=== PATIENT | male | born 1960 | race Two or more races ===

== ENCOUNTER 2024-03-10 07:35 | Day surgery (SDC) | payer BC, OTHER ==
[2024-03-10] VITALS (15 sets, daily range): BP systolic 100–148; BP diastolic 31–106; PULSE 60–79; RESP 10–18; TEMP 98; O2SAT 96–99
[~2024-03-10] VITALS: Ht 177.8 cm; Wt 77.0 kg
[2024-03-10] MEDS ORDERED: nitroGLYCERIN 0.4mg SUBLingual tab SL PRN ×2 (08:05→11:15)
[2024-03-10] MEDS ORDERED: FLO0.4C PO (08:17)
[2024-03-10] MEDS ORDERED: ASPI-1265 PO (08:17)
[2024-03-10] MEDS ORDERED: EZET10TA48 PO (08:17)
[2024-03-10] MEDS ORDERED: METO50TA16 PO (08:17)
[2024-03-10] MEDS ORDERED: ATOR-2 PO (08:17)
[2024-03-10 08:33] LABS: BASOPHILS % (AUTO) 0.9 % (0-1); EOSINOPHILS # (AUTO) 0.1 X10'3 (0-0.9); EOSINOPHILS % (AUTO) 1.8 % (0-6); HEMATOCRIT 45.6 % (42.0-52.0); HEMOGLOBIN 15.3 g/dl (14.0-17.9); LYMPHOCYTES # (AUTO) 1.1 X10'3 (1.1-4.8); LYMPHOCYTES % (AUTO) 27.6 % (21-51); MEAN CORPUSCULAR HEMOGLOBIN 30.2 PG (27.0-31.0); MEAN CORPUSCULAR HGB CONC 33.6 g/dL (33.0-36.5); MONOCYTES # (AUTO) 0.4 X10'3 (0-0.9); MONOCYTES % (AUTO) 9.9 % (2-12); NEUTROPHILS # (AUTO) 2.4 X10'3 (1.8-7.7); NEUTROPHILS % (AUTO) 59.8 % (42-75); PLATELET COUNT 141 X10'3 (140-440); RED BLOOD COUNT 5.07 X10'6 (4.70-6.10); RED CELL DISTRIBUTION WIDTH 13.6 % (11.5-14.5); WHITE BLOOD COUNT 4.1 X10'3 (4.5-11.0)
[2024-03-10 08:40] LABS: ALBUMIN 4.1 G/DL (3.4-5.0); ANION GAP 10 (8-16); BLOOD UREA NITROGEN 23 MG/DL (7-18); BUN/CREATININE RATIO 27.7 (10.0-20.0); CALCIUM 8.8 MG/DL (8.5-10.1); CHLORIDE 104 MMOL/L (99-107); CREATININE 0.83 MG/DL (0.60-1.10); GLUCOSE 90 MG/DL (70-104); POTASSIUM 3.6 MMOL/L (3.5-5.1); SODIUM 142 MMOL/L (135-145); TOTAL CARBON DIOXIDE 28.2 MMOL/L (24-32); eCRCL 94 ML/MIN; eGFR > 90 ML/MIN
[2024-03-10 08:44] LABS: APTT 26 SECONDS (22-32); PROTHROMBIN TIME 10.8 SECONDS (9.0-12.0)
[2024-03-10] MEDS ORDERED: LIDOcaine 1% 30ml preserv. free vial ONE (08:56)
[2024-03-10] MEDS ORDERED: fentaNYL/PF 50MCG/1 ML 2ML syringe ONE (08:56)
[2024-03-10] MEDS ORDERED: midazolam 1 mg/ML 2ml injection ONE ×2 (08:57→09:58)
[2024-03-10] MEDS ORDERED: iohexol 350MG/ML 100ml bottle IV ONE (08:57)
[2024-03-10] MEDS ORDERED: iohexol 350 MG/ML 50ML vial IV ONE ×3 (08:57→10:12)
[2024-03-10] MEDS: diphenhydrAMINE 25mg capsule PO PRN (09:06)
[2024-03-10] MEDS: LORazepam 0.5 MG tablet PO PRN (09:06)
[2024-03-10] MEDS: normal saline 1,000 ML IV SCH (09:06)
[2024-03-10] MEDS ORDERED: ondansetron/PF 4mg/2ml inj IV PRN (11:10)
[2024-03-10] MEDS ORDERED: HYDROcodone/acetaminophen 5mg/325mg tablet PO PRN (11:15)
[2024-03-10] MEDS ORDERED: proCHLORperazine 10 MG/2 ml inj IV PRN (11:15)
[2024-03-10] MEDS ORDERED: HYDROcodone/acetaminophen 10/325mg tab PO PRN (11:15)
[2024-03-10] MEDS ORDERED: OXAZEpam 15mg capsule PO PRN (11:15)
== END 2024-03-10 16:00 | disposition home or self-care (01) ==
LOC: SSTAY O 07:35
PROVIDERS: ATTEND Internal Medicine Cardiovascular Disease
DX: R94.39 Abnormal result of other cardiovascular function study (principal); I25.10 Atherosclerotic heart disease of native coronary artery without angina pectoris; I10 Essential (primary) hypertension; I25.2 Old myocardial infarction
CPT/HCPCS: 36415; 71046; 80048; 85025; 85610; 85730; 93005; 93458; 93567; 99152; 99153; J1644; J2250; J3010; J3490; J7030; Q0163; Q9967; A6258; C1760; C1769

== ENCOUNTER 2024-03-17 05:31 | Inpatient (IN) | payer OTHER ==
[2024-03-16 14:38] LABS: BILIRUBIN,URINE NEGATIVE (Neg); CLARITY,URINE CLEAR (Clear); COLOR,URINE YELLOW (Yellow); GLUCOSE, URINE NEGATIVE (Neg); KETONES,URINE 15 mg/dl (Neg); LEUKOCYTE ESTERASE ,URINE NEGATIVE (Neg); NITRITES, URINE NEGATIVE (Neg); OCCULT BLOOD,URINE NEGATIVE (Neg); PH,URINE 6.5 (4.8-8.0); PROTEIN,URINE NEGATIVE (Neg); UROBILINOGEN,URINE 0.2 E.U/dL (0.2-1.0)
[2024-03-16 14:38] LABS: BASOPHILS % (AUTO) 0.7 % (0-1); EOSINOPHILS % (AUTO) 0.9 % (0-6); LYMPHOCYTES # (AUTO) 0.9 X10'3 (1.1-4.8); LYMPHOCYTES % (AUTO) 18.4 % (21-51); MEAN CORPUSCULAR HEMOGLOBIN 30.3 PG (27.0-31.0); MEAN CORPUSCULAR VOLUME 89.2 FL (78-98); MEAN PLATELET VOLUME 9.3 FL (7.4-10.4); MONOCYTES # (AUTO) 0.4 X10'3 (0-0.9); MONOCYTES % (AUTO) 7.7 % (2-12); NEUTROPHILS # (AUTO) 3.7 X10'3 (1.8-7.7); NEUTROPHILS % (AUTO) 72.3 % (42-75); PRE OP HEMATOCRIT 44.6 % (42.0-52.0); PRE OP HEMOGLOBIN 15.1 g/dL (14.0-17.9); PRE OP PLATELET COUNT 184 X10'3 (140-440); PRE OP WHITE BLOOD COUNT 5.1 10'3 (4.8-10.8); RED BLOOD COUNT 4.99 X10'6 (4.70-6.10); RED CELL DISTRIBUTION WIDTH 13.7 % (11.5-14.5)
[2024-03-16 14:43] LABS: UA COLLECTION TYPE CLN CATCH MIDSTREAM
[2024-03-16 15:07] LABS: ALBUMIN 4.2 G/DL (3.4-5.0); ALBUMIN/GLOBULIN RATIO 1.2 (1.1-1.5); ALKALINE PHOSPHATASE 101 IU/L (46-116); BLOOD UREA NITROGEN 19 MG/DL (7-18); BUN/CREATININE RATIO 20.2 (10.0-20.0); CALCIUM 9.2 MG/DL (8.5-10.1); CHLORIDE 103 MMOL/L (99-107); CREATININE 0.94 MG/DL (0.60-1.10); PRE OP ALT 43 U/L (30-65); PRE OP ANION GAP 7 (8-16); PRE OP AST 28 U/L (10-37); PRE OP BILIRUB, TOTAL 1.3 MG/DL (0.0-1.0); PRE OP GLUCOSE 112 MG/DL (70-104); PRE OP SODIUM 139 MMOL/L (135-145); TOTAL CARBON DIOXIDE 29.2 MMOL/L (24-32); TOTAL PROTEIN 7.8 G/DL (6.4-8.2); eCRCL 83 ML/MIN; eGFR 81 ML/MIN
[2024-03-16 15:27] LABS: PRE OP PROTIME 10.9 SECONDS (9.0-12.0)
[2024-03-16 15:35] LABS: HEMOGLOBIN A1C 5.5 % (4.5-6.2)
[~2024-03-17] VITALS: Ht 182.9 cm; Wt 75.0 kg
[2024-03-17] MEDS: DOCUMENT DATE & TIME OF BETA-BLOCKER PO ONE (05:30)
[2024-03-17] MEDS: vancomycin 1,500 MG in NS 300ml IV soln IV ONE (05:30)
[2024-03-17] MEDS: mupirocin 2% nasal ointment 1gm UD NS ONE (05:30)
[2024-03-17] MEDS: metoprolol tartrate 12.5mg (1/2 tablet) PO ONE (05:30)
[~2024-03-17 05:31] MED LIST: ASPI-955 PO; ATOR-2 PO; CHOL125C6 PO; EZET10TA48 PO; FLO0.4C PO; Insulin Reg/NS 100units/100mL 100 ML IV SCH; MAGN200T5 PO; METO50TA16 PO; OMEG-15 PO; dextrose 50%-water 50ml dispensing syringe IV PRN; insulin glargine (Lantus) pen - multi-dose SQ PRN; ringers solution, lacted 1,000 ML IV SCH
[2024-03-17] MEDS: ceFAZolin 1000mg inj ONE (06:32)
[2024-03-17] MEDS: BUPIVAcaine/PF 2.5mg/ml (0.25%) 10ml vial ONE (06:35)
[2024-03-17 07:57] LABS: ABG BASE EXCESS 0.1 mmol/L (-2.0-3.0); ABG HCO3 23.8 mmol/L (21.0-28.0); ABG OXYGEN SATURATION 96.5 % (94.0-98.0); ABG PCO2 (T) 35.5 mmHg (35.0-48.0); ABG PH (T) 7.443 (7.350-7.450); ABG PO2 (T) 87.9 mmHg (83.0-108.0); ALLEN'S TEST POSITIVE; FCOHb 0.3 % (0.5-1.5); FHHb 3.5 % (0.0-5.0); FMetHb 0.3 % (0.0-1.5); FO2Hb 95.9 % (94.0-98.0); MODE ROOM AIR; PATIENT TEMPERATURE 36.8; TOTAL HEMOGLOBIN 15.9 G/dl (13.5-17.5)
[2024-03-17] MEDS ORDERED: ringers solution, lacted 1,000 ML IV SCH (09:20)
[2024-03-17] MEDS ORDERED: magnesium sulf-water 2g/50mL 50 ML IV PRN (09:20)
[2024-03-17] MEDS ORDERED: potassium Cl 20 mEq SR tablet PO PRN (09:20)
[2024-03-17] MEDS ORDERED: potassium CL 10mEq/100ml bag 100 ML IV PRN (09:20)
[2024-03-17] MEDS ORDERED: potassium Cl 20mEq/100mL bag 100 ML IV PRN (09:20)
[2024-03-17] MEDS: MESSAGE TO NURSING PO ONE ×7 (09:20→10:00)
[2024-03-17] MEDS ORDERED: potassium Cl 40MEQ/270ML bag 250 ML IV PRN (09:20)
[2024-03-17] MEDS ORDERED: potassium Cl 40MEQ/1/2NS 520ml 520 ML IV PRN (09:20)
[2024-03-17] MEDS ORDERED: magnesium sulf-water 4G/100mL 100 ML IV PRN (09:20)
[2024-03-17] MEDS ORDERED: nitroGLYCERIN 0.4mg SUBLingual tab SL PRN (10:00)
[2024-03-17] MEDS ORDERED: ALPRAZolam 0.25mg tablet PO PRN (10:00)
[2024-03-17] MEDS ORDERED: temazepam 15mg capsule PO PRN (10:00)
[2024-03-17 10:17] VITALS: BP 132/72; PULSE 90; RESP 16; TEMP 98.8; O2SAT 9
[2024-03-17 10:18] VITALS: BP 135/72; PULSE 90; RESP 16; TEMP 98.8; O2SAT 99
[2024-03-17 10:21] VITALS: RESP 16; O2SAT 99
[2024-03-17 17:58] LABS: HEMATOCRIT 40.6 % (42.0-52.0); HEMOGLOBIN 13.8 g/dl (14.0-17.9); MEAN CORPUSCULAR HEMOGLOBIN 30.1 PG (27.0-31.0); MEAN CORPUSCULAR VOLUME 88.5 FL (78-98); MEAN PLATELET VOLUME 9.4 FL (7.4-10.4); PLATELET COUNT 157 X10'3 (140-440); RED BLOOD COUNT 4.59 X10'6 (4.70-6.10); RED CELL DISTRIBUTION WIDTH 13.4 % (11.5-14.5); WHITE BLOOD COUNT 4.3 X10'3 (4.5-11.0)
[2024-03-17 18:03] VITALS: BP 139/71; PULSE 75; RESP 11; TEMP 98.3; O2SAT 98
[2024-03-17 18:05] LABS: ALBUMIN 3.4 G/DL (3.4-5.0); ANION GAP 6 (8-16); BLOOD UREA NITROGEN 27 MG/DL (7-18); CHLORIDE 105 MMOL/L (99-107); CREATININE 0.87 MG/DL (0.60-1.10); GLUCOSE 103 MG/DL (70-104); POTASSIUM 3.9 MMOL/L (3.5-5.1); SODIUM 140 MMOL/L (135-145); TOTAL CARBON DIOXIDE 29.5 MMOL/L (24-32); eCRCL 90 ML/MIN; eGFR 89 ML/MIN
[2024-03-17 18:08] LABS: APTT 24 SECONDS (22-32); INR 1.1 INR
[2024-03-17 20:00] VITALS: RESP 14; O2SAT 98
[2024-03-17] MEDS: mupirocin 2% nasal ointment 1gm UD NS SCH (20:07)
[2024-03-17] MEDS: sod chloride 0.9% 10ml flush syringe IV SCH (20:07)
[2024-03-17 22:00] VITALS: BP 111/65; PULSE 75; RESP 17; TEMP 98.2; O2SAT 100
[2024-03-18] VITALS (18 sets, daily range): BP systolic 109–135; BP diastolic 42–57; PULSE 72–83; RESP 12–24; O2SAT 97–100
[2024-03-18] MEDS: vancomycin 1,500 MG in NS 300ml IV soln IV ONE (05:30)
[2024-03-18] MEDS: cefazolin 2gm/D5W 100mL 100 ML IV ONE (05:30)
[2024-03-18 06:39] LABS: INR 1.1 INR; PROTHROMBIN TIME 11.1 SECONDS (9.0-12.0)
[2024-03-18] MEDS: BUPIVAcaine 2.5mg/ml inj 50ml vial (contains preservative) ONE (06:40)
[2024-03-18] MEDS: ceFAZolin 1000mg inj ONE (06:40)
[2024-03-18 06:51] LABS: ALBUMIN 3.9 G/DL (3.4-5.0); ANION GAP 8 (8-16); BLOOD UREA NITROGEN 22 MG/DL (7-18); BUN/CREATININE RATIO 25.9 (10.0-20.0); CALCIUM 9.2 MG/DL (8.5-10.1); CHLORIDE 105 MMOL/L (99-107); CREATININE 0.85 MG/DL (0.60-1.10); GLUCOSE 103 MG/DL (70-104); POTASSIUM 3.8 MMOL/L (3.5-5.1); SODIUM 139 MMOL/L (135-145); eCRCL 92 ML/MIN; eGFR > 90 ML/MIN
[2024-03-18 07:13] LABS: BASOPHILS % (AUTO) 0.8 % (0-1); EOSINOPHILS # (AUTO) 0.1 X10'3 (0-0.9); HEMATOCRIT 44.2 % (42.0-52.0); HEMOGLOBIN 15.1 g/dl (14.0-17.9); LYMPHOCYTES # (AUTO) 1.3 X10'3 (1.1-4.8); LYMPHOCYTES % (AUTO) 23.5 % (21-51); MEAN CORPUSCULAR HEMOGLOBIN 30.2 PG (27.0-31.0); MEAN CORPUSCULAR HGB CONC 34.1 g/dL (33.0-36.5); MEAN CORPUSCULAR VOLUME 88.6 FL (78-98); MEAN PLATELET VOLUME 9.8 FL (7.4-10.4); MONOCYTES # (AUTO) 0.4 X10'3 (0-0.9); MONOCYTES % (AUTO) 7.5 % (2-12); NEUTROPHILS # (AUTO) 3.8 X10'3 (1.8-7.7); NEUTROPHILS % (AUTO) 67.2 % (42-75); PLATELET COUNT 174 X10'3 (140-440); RED BLOOD COUNT 4.99 X10'6 (4.70-6.10); RED CELL DISTRIBUTION WIDTH 13.4 % (11.5-14.5); WHITE BLOOD COUNT 5.6 X10'3 (4.5-11.0)
[2024-03-18] MEDS: famotidine 20mg tablet PO ONE ×2 (07:25→07:30)
[2024-03-18] MEDS: LORazepam 2 mg/ml vial ONE (07:26)
[2024-03-18] MEDS: metoprolol tartrate 12.5mg (1/2 tablet) PO ONE (07:30)
[2024-03-18] MEDS ORDERED: pantoprazole 40mg Tablet.DR PO SCH (07:30)
[2024-03-18] MEDS: BUPIVAcaine/PF 2.5mg/ml (0.25%) 10ml vial ONE (07:31)
[2024-03-18] MEDS ORDERED: isoflurane 100ml inhalation liquid IH ONE (07:45)
[2024-03-18] MEDS ORDERED: SUfentanil 50mcg/ml 1ml amp IV ONE (07:52)
[2024-03-18] MEDS ORDERED: MIDAZolam 1 MG/ML 5ML VIAL ONE (07:54)
[2024-03-18] MEDS ORDERED: rocuronium 10mg/ml inj IV ONE ×2 (07:59→08:42)
[2024-03-18] MEDS ORDERED: aminophylline 500mg/20ml vial ONE (08:00)
[2024-03-18 08:40] LABS: ABG BASE EXCESS -0.1 mmol/L (-2.0-3.0); ABG HCO3 23.7 mmol/L (21.0-28.0); ABG OXYGEN SATURATION 99.5 % (94.0-98.0); ABG PCO2 36.1 mmHg (35.0-48.0); ABG PH 7.435 (7.350-7.450); CL (ABG) 105 mmol/L (98-107); FCOHb 0.3 % (0.5-1.5); FHHb 0.5 % (0.0-5.0); FMetHb 0.2 % (0.0-1.5); GLUCOSE (ABG) 106 mg/dl (65-95); IONIZED CA (ABG) 1.19 mmol/L (1.15-1.33); K (ABG) 3.9 mmol/L (3.40-4.50); TOTAL HEMOGLOBIN 14.8 G/dl (13.5-17.5)
[2024-03-18] MEDS ORDERED: LIDOcaine 2% (20mg/ml) 5ml vial ONE (08:42)
[2024-03-18] MEDS ORDERED: propofol inj 20 ML IV ONE (08:42)
[2024-03-18] MEDS: ceFAZolin 1000mg inj IR ONE (08:45)
[2024-03-18 09:24] LABS: ABG BASE EXCESS -5.1 mmol/L (-2.0-3.0); ABG HCO3 19.1 mmol/L (21.0-28.0); ABG PCO2 33.4 mmHg (35.0-48.0); ABG PH 7.376 (7.350-7.450); ABG PO2 202.9 mmHg (83.0-108.0); CL (ABG) 104 mmol/L (98-107); FCOHb 0.3 % (0.5-1.5); FMetHb 0.2 % (0.0-1.5); FO2Hb 98.5 % (94.0-98.0); GLUCOSE (ABG) 132 mg/dl (65-95); IONIZED CA (ABG) 1.15 mmol/L (1.15-1.33); K (ABG) 4.2 mmol/L (3.40-4.50); TOTAL HEMOGLOBIN 14.1 G/dl (13.5-17.5)
[2024-03-18 10:27] LABS: ABG BASE EXCESS -2.6 mmol/L (-2.0-3.0); ABG OXYGEN SATURATION 99.3 % (94.0-98.0); ABG PCO2 28.8 mmHg (35.0-48.0); ABG PH 7.459 (7.350-7.450); ABG PO2 245.9 mmHg (83.0-108.0); CL (ABG) 106 mmol/L (98-107); FCOHb 0.3 % (0.5-1.5); FHHb 0.7 % (0.0-5.0); GLUCOSE (ABG) 133 mg/dl (65-95); IONIZED CA (ABG) 1.14 mmol/L (1.15-1.33); K (ABG) 4.2 mmol/L (3.40-4.50); TOTAL HEMOGLOBIN 13.3 G/dl (13.5-17.5)
[2024-03-18] MEDS ORDERED: albumin (Human) 5% 250ml 250 ML IV ONE (11:09)
[2024-03-18 11:35] LABS: ABG BASE EXCESS -4.2 mmol/L (-2.0-3.0); ABG HCO3 19.2 mmol/L (21.0-28.0); ABG OXYGEN SATURATION 99.3 % (94.0-98.0); ABG PCO2 30.7 mmHg (35.0-48.0); ABG PH 7.415 (7.350-7.450); ABG PO2 265.5 mmHg (83.0-108.0); CL (ABG) 107 mmol/L (98-107); FCOHb 0.3 % (0.5-1.5); FHHb 0.7 % (0.0-5.0); FMetHb 0.1 % (0.0-1.5); FO2Hb 98.9 % (94.0-98.0); GLUCOSE (ABG) 157 mg/dl (65-95); IONIZED CA (ABG) 1.14 mmol/L (1.15-1.33); K (ABG) 4.3 mmol/L (3.40-4.50); TOTAL HEMOGLOBIN 13.8 G/dl (13.5-17.5)
[2024-03-18] MEDS ORDERED: fentaNYL /PF 50mcg/ml 5ml ampule ONE (11:56)
[2024-03-18 12:56] LABS: ABG BASE EXCESS -5.1 mmol/L (-2.0-3.0); ABG HCO3 19.3 mmol/L (21.0-28.0); ABG PCO2 34.1 mmHg (35.0-48.0); ABG PH 7.371 (7.350-7.450); ABG PO2 249.8 mmHg (83.0-108.0); CL (ABG) 111 mmol/L (98-107); FCOHb 0.3 % (0.5-1.5); FMetHb 0.3 % (0.0-1.5); FO2Hb 98.4 % (94.0-98.0); GLUCOSE (ABG) 133 mg/dl (65-95); IONIZED CA (ABG) 1.09 mmol/L (1.15-1.33); K (ABG) 3.6 mmol/L (3.40-4.50); TOTAL HEMOGLOBIN 13.3 G/dl (13.5-17.5)
[2024-03-18 12:57] LABS: ACTIVATED CLOTTING TIME 106 SEC (101-148)
[2024-03-18] MEDS ORDERED: albuterol 2.5 MG/3 ML nebule NEB PRN (13:35)
[2024-03-18] MEDS ORDERED: bisacodyl 10mg suppository rectal RC PRN (13:55)
[2024-03-18] MEDS: Insulin Reg/NS 100units/100mL 100 ML IV SCH ×2 (13:55→15:40)
[2024-03-18] MEDS ORDERED: acetaminophen 325mg tablet PO PRN ×2 (13:55)
[2024-03-18] MEDS ORDERED: niCARDipine-NS 40mg/200ml IVPB 200 ML IV PRN (13:55)
[2024-03-18] MEDS ORDERED: dextrose 50%-water 50ml dispensing syringe IV PRN (13:55)
[2024-03-18] MEDS ORDERED: potassium Cl 20 mEq SR tablet PO PRN (13:55)
[2024-03-18] MEDS ORDERED: Neutra Phos packet PO PRN (13:55)
[2024-03-18] MEDS ORDERED: normal saline 250ml IV soln 250 ML IV PRN (13:55)
[2024-03-18] MEDS ORDERED: potassium Cl 40MEQ/1/2NS 520ml 520 ML IV PRN (13:55)
[2024-03-18] MEDS ORDERED: ondansetron/PF 4mg/2ml inj IV PRN (13:55)
[2024-03-18] MEDS ORDERED: sodium phosphate inj. 30 MMOL in dextrose 5%-water 250 ML IV PRN (13:55)
[2024-03-18] MEDS ORDERED: nitroGLYCERIN-Tridil 50MG/D5W 250 ML IV PRN (13:55)
[2024-03-18] MEDS ORDERED: sodium phosphate inj. 15 MMOL in dextrose 5%-water 250 ML IV PRN (13:55)
[2024-03-18] MEDS ORDERED: metoclopramide 5 mg/ml inj IV PRN (13:55)
[2024-03-18] MEDS ORDERED: mineral oil 133ml enema RC PRN (13:55)
[2024-03-18] MEDS ORDERED: potassium CL 10mEq/100ml bag 100 ML IV PRN (13:55)
[2024-03-18] MEDS ORDERED: insulin glargine (Lantus) pen - multi-dose SQ PRN (13:55)
[2024-03-18] MEDS: NORepinephrine 8mg/ 250ml NS 250 ML IV SCH (14:00)
[2024-03-18] MEDS ORDERED: ROPIVAcaine 0.2%/PF PUMP 545 ML MEDSTERN SCH ×2 (14:00)
[2024-03-18 14:18] LABS: ABG BASE EXCESS -5.1 mmol/L (-2.0-3.0); ABG HCO3 19.2 mmol/L (21.0-28.0); ABG OXYGEN SATURATION 99.1 % (94.0-98.0); ABG PCO2 (T) 31.2 mmHg (35.0-48.0); ABG PH (T) 7.398 (7.350-7.450); FCOHb 0.1 % (0.5-1.5); FHHb 0.9 % (0.0-5.0); FMetHb 0.3 % (0.0-1.5); FO2Hb 98.7 % (94.0-98.0); MODE VENT - SIMV; PATIENT TEMPERATURE 35.2; PEEP 5 cm H2O; RESPIRATORY RATE 12 b/min; TIDAL VOLUME 550 mL; TOTAL HEMOGLOBIN 13.8 G/dl (13.5-17.5)
[2024-03-18] MEDS: ringers solution, lacted 1,000 ML IV ONE (14:30)
[2024-03-18 14:31] LABS: BASOPHILS % (AUTO) 0.2 % (0-1); EOSINOPHILS % (AUTO) 0.1 % (0-6); HEMATOCRIT 40.4 % (42.0-52.0); HEMOGLOBIN 13.3 g/dl (14.0-17.9); LYMPHOCYTES # (AUTO) 0.8 X10'3 (1.1-4.8); LYMPHOCYTES % (AUTO) 5.7 % (21-51); MEAN CORPUSCULAR HEMOGLOBIN 29.4 PG (27.0-31.0); MEAN CORPUSCULAR HGB CONC 32.9 g/dL (33.0-36.5); MEAN CORPUSCULAR VOLUME 89.5 FL (78-98); MEAN PLATELET VOLUME 9.2 FL (7.4-10.4); MONOCYTES # (AUTO) 0.9 X10'3 (0-0.9); NEUTROPHILS # (AUTO) 12.6 X10'3 (1.8-7.7); PLATELET COUNT 121 X10'3 (140-440); RED BLOOD COUNT 4.52 X10'6 (4.70-6.10); RED CELL DISTRIBUTION WIDTH 13.7 % (11.5-14.5); WHITE BLOOD COUNT 14.3 X10'3 (4.5-11.0)
[2024-03-18 14:50] LABS: ALANINE AMINOTRANSFERASE 27 U/L (12-78); ALBUMIN 2.8 G/DL (3.4-5.0); ALBUMIN/GLOBULIN RATIO 1.2 (1.1-1.5); ALKALINE PHOSPHATASE 61 IU/L (46-116); ANION GAP 9 (8-16); ASPARTATE AMINO TRANSFERASE 23 U/L (10-37); BILIRUBIN,TOTAL 1.4 MG/DL (0.1-1.0); BLOOD UREA NITROGEN 21 MG/DL (7-18); BUN/CREATININE RATIO 25.9 (10.0-20.0); CALCIUM 7.3 MG/DL (8.5-10.1); CHLORIDE 112 MMOL/L (99-107); CREATININE 0.81 MG/DL (0.60-1.10); GLUCOSE 121 MG/DL (70-104); MAGNESIUM 1.5 MG/DL (1.5-2.4); PHOSPHORUS 3.1 MG/DL (2.3-4.5); POTASSIUM 3.7 MMOL/L (3.5-5.1); SODIUM 143 MMOL/L (135-145); TOTAL CARBON DIOXIDE 21.6 MMOL/L (24-32); TOTAL PROTEIN 5.1 G/DL (6.4-8.2); eCRCL 96 ML/MIN; eGFR > 90 ML/MIN
[2024-03-18] MEDS: morphine 4 MG/ML inj SYRINge IV PRN (14:59)
[2024-03-18] MEDS: albumin (Human) 5% 250ml 250 ML IV PRN (15:12)
[2024-03-18 15:16] LABS: APTT 24 SECONDS (22-32); INR 1.3 INR
[2024-03-18 15:22] LABS: FIBRINOGEN 185 MG/DL (177-424)
[2024-03-18] MEDS: ceFAZolin/D5W- 1GM premix 50 ML IV SCH (15:39)
[2024-03-18] MEDS: sodium chloride 0.45% 1,000 ML IV SCH (16:33)
[2024-03-18] MEDS: potassium Cl 20mEq/100mL bag 100 ML IV PRN (17:11)
[2024-03-18] MEDS: magnesium sulf-water 2g/50mL 50 ML IV PRN (17:12)
[2024-03-18] MEDS: DOBUTamine-DoBUTrex 500mg/D5W 250 ML IV SCH (18:10)
[2024-03-18] MEDS: sennosides/docusate sodium tablet PO SCH (20:00)
[2024-03-18] MEDS: atorvastatin 10mg tablet PO SCH (21:00)
[2024-03-18] MEDS: gabapentin 300mg capsule PO SCH (21:00)
[2024-03-18] MEDS: mupirocin 2% nasal ointment 1gm UD NS SCH (21:05)
[2024-03-18] MEDS: vancomycin/NS 1 GM ADD-VANTAGE 250 ML IV SCH (21:05)
[2024-03-18] MEDS: morphine 2 MG/ML inj. syringe IV PRN (21:06)
[2024-03-18 21:54] LABS: BASOPHILS % (AUTO) 0.1 % (0-1); EOSINOPHILS % (AUTO) 0 % (0-6); HEMATOCRIT 35.9 % (42.0-52.0); HEMOGLOBIN 12.2 g/dl (14.0-17.9); LYMPHOCYTES # (AUTO) 0.3 X10'3 (1.1-4.8); LYMPHOCYTES % (AUTO) 2.1 % (21-51); MEAN CORPUSCULAR HEMOGLOBIN 29.7 PG (27.0-31.0); MEAN CORPUSCULAR VOLUME 87.5 FL (78-98); MEAN PLATELET VOLUME 9.1 FL (7.4-10.4); MONOCYTES # (AUTO) 0.6 X10'3 (0-0.9); MONOCYTES % (AUTO) 4.3 % (2-12); NEUTROPHILS # (AUTO) 12.3 X10'3 (1.8-7.7); NEUTROPHILS % (AUTO) 93.5 % (42-75); PLATELET COUNT 118 X10'3 (140-440); RED BLOOD COUNT 4.11 X10'6 (4.70-6.10); RED CELL DISTRIBUTION WIDTH 13.7 % (11.5-14.5); WHITE BLOOD COUNT 13.2 X10'3 (4.5-11.0)
[2024-03-18 22:06] LABS: ALBUMIN 3.1 G/DL (3.4-5.0); ANION GAP 6 (8-16); CHLORIDE 109 MMOL/L (99-107); CREATININE 0.76 MG/DL (0.60-1.10); PHOSPHORUS 3.3 MG/DL (2.3-4.5); SODIUM 140 MMOL/L (135-145); TOTAL CARBON DIOXIDE 24.6 MMOL/L (24-32); eCRCL 105 ML/MIN; eGFR > 90 ML/MIN
[2024-03-18 22:15] LABS: BLOOD UREA NITROGEN 18 MG/DL (7-18); BUN/CREATININE RATIO 23.7 (10.0-20.0); CALCIUM 7.9 MG/DL (8.5-10.1); GLUCOSE 131 MG/DL (70-104)
[2024-03-18] MEDS: magnesium sulf-water 4G/100mL 100 ML IV PRN (22:47)
[2024-03-18] MEDS: potassium Cl 40MEQ/270ML bag 250 ML IV PRN (23:36)
[2024-03-19] VITALS (18 sets, daily range): BP systolic 103–142; BP diastolic 50–74; PULSE 85–103; RESP 15–25; TEMP 97.7; O2SAT 94–99
[2024-03-19 02:50] LABS: BASOPHILS % (AUTO) 0.1 % (0-1); EOSINOPHILS % (AUTO) 0 % (0-6); HEMATOCRIT 36.6 % (42.0-52.0); HEMOGLOBIN 12.4 g/dl (14.0-17.9); LYMPHOCYTES # (AUTO) 0.5 X10'3 (1.1-4.8); LYMPHOCYTES % (AUTO) 3.6 % (21-51); MEAN CORPUSCULAR HEMOGLOBIN 29.9 PG (27.0-31.0); MEAN CORPUSCULAR HGB CONC 33.7 g/dL (33.0-36.5); MEAN CORPUSCULAR VOLUME 88.5 FL (78-98); MONOCYTES # (AUTO) 0.9 X10'3 (0-0.9); MONOCYTES % (AUTO) 6.8 % (2-12); NEUTROPHILS # (AUTO) 11.6 X10'3 (1.8-7.7); NEUTROPHILS % (AUTO) 89.5 % (42-75); PLATELET COUNT 117 X10'3 (140-440); RED BLOOD COUNT 4.14 X10'6 (4.70-6.10); RED CELL DISTRIBUTION WIDTH 13.5 % (11.5-14.5); WHITE BLOOD COUNT 12.9 X10'3 (4.5-11.0)
[2024-03-19 03:07] LABS: ALANINE AMINOTRANSFERASE 31 U/L (12-78); ALBUMIN 3.1 G/DL (3.4-5.0); ALBUMIN/GLOBULIN RATIO 1.3 (1.1-1.5); ALKALINE PHOSPHATASE 62 IU/L (46-116); ANION GAP 7 (8-16); ASPARTATE AMINO TRANSFERASE 40 U/L (10-37); BILIRUBIN,TOTAL 1.3 MG/DL (0.1-1.0); BLOOD UREA NITROGEN 15 MG/DL (7-18); BUN/CREATININE RATIO 20.5 (10.0-20.0); CALCIUM 8.1 MG/DL (8.5-10.1); CHLORIDE 108 MMOL/L (99-107); CREATININE 0.73 MG/DL (0.60-1.10); GLUCOSE 121 MG/DL (70-104); MAGNESIUM 2.7 MG/DL (1.5-2.4); PHOSPHORUS 3.8 MG/DL (2.3-4.5); POTASSIUM 4.7 MMOL/L (3.5-5.1); SODIUM 139 MMOL/L (135-145); TOTAL CARBON DIOXIDE 23.8 MMOL/L (24-32); TOTAL PROTEIN 5.5 G/DL (6.4-8.2); eCRCL 109 ML/MIN; eGFR > 90 ML/MIN
[2024-03-19 03:36] LABS: APTT 25 SECONDS (22-32); INR 1.1 INR; PROTHROMBIN TIME 11.4 SECONDS (9.0-12.0)
[2024-03-19] MEDS: HYDROcodone/acetaminophen 10/325mg tab PO PRN (06:43)
[2024-03-19] MEDS: metoprolol tartrate 12.5mg (1/2 tablet) PO SCH (08:14)
[2024-03-19] MEDS: aspirin 81mg tab.chew PO SCH (08:26)
[2024-03-19] MEDS ORDERED: dextrose 50%-water 50ml dispensing syringe IV PRN ×2 (08:45)
[2024-03-19] MEDS ORDERED: glucagon, human recombinant 1mg kit SUBCUT PRN (08:45)
[2024-03-19] MEDS ORDERED: DEXTROSE 15 GM of carb/4 tabs (each vial/BOTTLE has 4 tablets) PO PRN ×2 (08:45)
[2024-03-19] MEDS: INSULIN LISPRO 100 UNIT/ML INSULN.PEN MULTI-DOSE SQ SCH ×2 (09:00→13:39)
[2024-03-19] MEDS: pantoprazole 40mg Tablet.DR PO SCH (12:44)
[2024-03-19] MEDS: clopidogrel 75mg tablet PO SCH (12:44)
[2024-03-19] MEDS: folic acid/vitamin B complex w/vitamin C 0.8mg tablet PO SCH (12:49)
[2024-03-19] MEDS: colchicine 0.6mg tablet PO SCH (20:50)
[2024-03-19] MEDS: enoxaparin 40mg/0.4ml syringe SUBCUT SCH (20:54)
[2024-03-19] MEDS: methylPREDNISolone sod succ 125mg/2ml vial IV SCH (20:58)
[2024-03-19] MEDS: furosemide 20 MG/2 ML vial IV SCH (21:01)
[2024-03-19] MEDS: insulin glargine (Lantus) pen - multi-dose SQ SCH (21:42)
[2024-03-20] VITALS (7 sets, daily range): BP systolic 96–139; BP diastolic 54–73; PULSE 71–97; RESP 16–23; TEMP 97–98.1; O2SAT 93–97
[2024-03-20 06:20] LABS: BASOPHILS % (AUTO) 0.1 % (0-1); EOSINOPHILS % (AUTO) 0 % (0-6); HEMATOCRIT 35.2 % (42.0-52.0); HEMOGLOBIN 12.1 g/dl (14.0-17.9); LYMPHOCYTES # (AUTO) 0.5 X10'3 (1.1-4.8); LYMPHOCYTES % (AUTO) 4.5 % (21-51); MEAN CORPUSCULAR HEMOGLOBIN 30.4 PG (27.0-31.0); MEAN CORPUSCULAR HGB CONC 34.4 g/dL (33.0-36.5); MEAN CORPUSCULAR VOLUME 88.3 FL (78-98); MEAN PLATELET VOLUME 9.7 FL (7.4-10.4); MONOCYTES # (AUTO) 0.6 X10'3 (0-0.9); MONOCYTES % (AUTO) 5.8 % (2-12); NEUTROPHILS # (AUTO) 9.5 X10'3 (1.8-7.7); NEUTROPHILS % (AUTO) 89.6 % (42-75); PLATELET COUNT 104 X10'3 (140-440); RED BLOOD COUNT 3.99 X10'6 (4.70-6.10); RED CELL DISTRIBUTION WIDTH 13.5 % (11.5-14.5); WHITE BLOOD COUNT 10.6 X10'3 (4.5-11.0)
[2024-03-20 07:25] LABS: ALBUMIN 2.9 G/DL (3.4-5.0); ANION GAP 5 (8-16); BLOOD UREA NITROGEN 14 MG/DL (7-18); BUN/CREATININE RATIO 16.9 (10.0-20.0); CALCIUM 8.2 MG/DL (8.5-10.1); CHLORIDE 105 MMOL/L (99-107); CREATININE 0.83 MG/DL (0.60-1.10); GLUCOSE 145 MG/DL (70-104); PHOSPHORUS 2.4 MG/DL (2.3-4.5); POTASSIUM 4.1 MMOL/L (3.5-5.1); SODIUM 137 MMOL/L (135-145); TOTAL CARBON DIOXIDE 26.9 MMOL/L (24-32); eCRCL 96 ML/MIN; eGFR > 90 ML/MIN
[2024-03-20] MEDS ORDERED: pantoprazole 40mg Tablet.DR PO SCH (07:30)
[2024-03-20] MEDS: HYDROcodone/acetaminophen 10/325mg tab PO PRN (08:35)
[2024-03-20] MEDS: metoprolol tartrate 25mg tablet PO SCH (13:44)
[2024-03-20] MEDS: magnesium hydroxide 30ml (MOM) UD suspension PO PRN (13:47)
[2024-03-20] MEDS: docusate sod 100mg capsule PO SCH (20:33)
[2024-03-20] MEDS: tamsulosin 0.4mg capsule PO SCH (20:34)
[2024-03-20] MEDS: furosemide 20MG tablet PO SCH (20:35)
[2024-03-21] VITALS (9 sets, daily range): BP systolic 112–139; BP diastolic 61–76; PULSE 77–90; RESP 16–24; TEMP 97.8–98.6; O2SAT 94–97
[2024-03-21 07:29] LABS: BASOPHILS % (AUTO) 0.1 % (0-1); EOSINOPHILS % (AUTO) 0.1 % (0-6); HEMATOCRIT 32.4 % (42.0-52.0); LYMPHOCYTES # (AUTO) 0.7 X10'3 (1.1-4.8); MEAN CORPUSCULAR HEMOGLOBIN 29.9 PG (27.0-31.0); MEAN CORPUSCULAR VOLUME 87.9 FL (78-98); MEAN PLATELET VOLUME 9.7 FL (7.4-10.4); MONOCYTES # (AUTO) 0.6 X10'3 (0-0.9); MONOCYTES % (AUTO) 6.1 % (2-12); NEUTROPHILS # (AUTO) 7.9 X10'3 (1.8-7.7); NEUTROPHILS % (AUTO) 85.7 % (42-75); PLATELET COUNT 110 X10'3 (140-440); RED BLOOD COUNT 3.69 X10'6 (4.70-6.10); RED CELL DISTRIBUTION WIDTH 13.6 % (11.5-14.5); WHITE BLOOD COUNT 9.2 X10'3 (4.5-11.0)
[2024-03-21 07:48] LABS: ALBUMIN 2.8 G/DL (3.4-5.0); ANION GAP 4 (8-16); BLOOD UREA NITROGEN 20 MG/DL (7-18); CALCIUM 8.3 MG/DL (8.5-10.1); CHLORIDE 105 MMOL/L (99-107); CREATININE 0.74 MG/DL (0.60-1.10); GLUCOSE 122 MG/DL (70-104); MAGNESIUM 2.1 MG/DL (1.5-2.4); PHOSPHORUS 2.8 MG/DL (2.3-4.5); POTASSIUM 3.8 MMOL/L (3.5-5.1); SODIUM 139 MMOL/L (135-145); TOTAL CARBON DIOXIDE 29.9 MMOL/L (24-32); eCRCL 110 ML/MIN; eGFR > 90 ML/MIN
[2024-03-22] VITALS: BP 108/63; PULSE 88; RESP 14; TEMP 98.8; O2SAT 96
[2024-03-22 06:55] LABS: ALBUMIN 2.8 G/DL (3.4-5.0); ANION GAP 7 (8-16); BLOOD UREA NITROGEN 23 MG/DL (7-18); BUN/CREATININE RATIO 30.7 (10.0-20.0); CALCIUM 8.3 MG/DL (8.5-10.1); CHLORIDE 104 MMOL/L (99-107); CREATININE 0.75 MG/DL (0.60-1.10); GLUCOSE 109 MG/DL (70-104); MAGNESIUM 1.9 MG/DL (1.5-2.4); PHOSPHORUS 3.7 MG/DL (2.3-4.5); POTASSIUM 3.4 MMOL/L (3.5-5.1); SODIUM 139 MMOL/L (135-145); TOTAL CARBON DIOXIDE 28.5 MMOL/L (24-32); eCRCL 107 ML/MIN; eGFR > 90 ML/MIN
[2024-03-22 07:00] VITALS: BP 121/75; PULSE 78; RESP 22; TEMP 98.7; O2SAT 96
[2024-03-22 07:18] LABS: BASOPHILS % (AUTO) 0.5 % (0-1); EOSINOPHILS # (AUTO) 0.1 X10'3 (0-0.9); EOSINOPHILS % (AUTO) 1.6 % (0-6); HEMATOCRIT 35.7 % (42.0-52.0); HEMOGLOBIN 12.1 g/dl (14.0-17.9); LYMPHOCYTES # (AUTO) 1.1 X10'3 (1.1-4.8); LYMPHOCYTES % (AUTO) 20.7 % (21-51); MEAN CORPUSCULAR HEMOGLOBIN 30.2 PG (27.0-31.0); MEAN CORPUSCULAR HGB CONC 33.9 g/dL (33.0-36.5); MEAN CORPUSCULAR VOLUME 89.1 FL (78-98); MEAN PLATELET VOLUME 9.5 FL (7.4-10.4); MONOCYTES # (AUTO) 0.5 X10'3 (0-0.9); MONOCYTES % (AUTO) 8.7 % (2-12); NEUTROPHILS # (AUTO) 3.7 X10'3 (1.8-7.7); NEUTROPHILS % (AUTO) 68.5 % (42-75); PLATELET COUNT 143 X10'3 (140-440); RED BLOOD COUNT 4.01 X10'6 (4.70-6.10); RED CELL DISTRIBUTION WIDTH 13.6 % (11.5-14.5); WHITE BLOOD COUNT 5.3 X10'3 (4.5-11.0)
[2024-03-22 08:00] VITALS: RESP 16; O2SAT 96
[2024-03-22] MEDS ORDERED: HYDR-3965 PO ×2 (08:06→16:43)
[2024-03-22] MEDS ORDERED: PANT40TA54 PO (08:06)
[2024-03-22] MEDS ORDERED: CLOP75TA34 PO (08:06)
[2024-03-22] MEDS ORDERED: LOP25T PO (08:06)
[2024-03-22] MEDS ORDERED: POTA-206 PO (08:06)
[2024-03-22] MEDS ORDERED: COL0.6T PO (08:06)
[2024-03-22] MEDS ORDERED: FURO20TA4 PO (08:06)
[2024-03-22 11:00] VITALS: BP 120/74; PULSE 87; RESP 14; TEMP 97.1; O2SAT 97
[2024-03-22 13:49] LABS: ACT @ 1.70 U 281 SEC (193-297); ACT @ 2.84 U 386 SEC (260-420); BASELINE ACT 142 SEC (101-148); PATIENT WEIGHT 75.0k KG
[2024-03-22 15:09] LABS: ABG PO2 470.1 mmHg (83.0-108.0)
[2024-03-22 16:12] VITALS: BP 108/69; PULSE 88; RESP 17; TEMP 97.5; O2SAT 95
== END 2024-03-22 17:00 | disposition home or self-care (01) | DRG 236 ==
LOC: PAS IN 05:31 → UNDOADMIN 05:31 → PAS IN 08:00 → EDSTATUS 08:30 → PAS IN 13:35 → PCU 3S 17:00 → CICU 2S 03-18 10:59 → PCU 3S 03-19 17:44
PROVIDERS: ADMIT Surgery; ATTEND Surgery
PROC: 021109W Bypass Coronary Artery, Two Arteries from Aorta with Autologous Venous Tissue, Open Approach (ICD-10-PCS; 2024-03-18)
PROC: 06BQ4ZZ Excision of Left Saphenous Vein, Percutaneous Endoscopic Approach (ICD-10-PCS; 2024-03-18)
PROC: 0BBG0ZZ Excision of Left Upper Lung Lobe, Open Approach (ICD-10-PCS; 2024-03-18)
PROC: 0JH80WZ Insertion of Totally Implantable Vascular Access Device into Abdomen Subcutaneous Tissue and Fascia, Open Approach (ICD-10-PCS; 2024-03-18)
PROC: 5A1223Z Performance of Cardiac Pacing, Continuous (ICD-10-PCS; 2024-03-18)
PROC: B24BZZ4 Ultrasonography of Heart with Aorta, Transesophageal (ICD-10-PCS; 2024-03-18)
PROC: 02100Z9 Bypass Coronary Artery, One Artery from Left Internal Mammary, Open Approach (ICD-10-PCS; principal; 2024-03-18 07:45)
DX: I25.110 Atherosclerotic heart disease of native coronary artery with unstable angina pectoris (principal); I31.9 Disease of pericardium, unspecified; E78.2 Mixed hyperlipidemia; I25.9 Chronic ischemic heart disease, unspecified; I10 Essential (primary) hypertension; E87.70 Fluid overload, unspecified; R91.8 Other nonspecific abnormal finding of lung field; Z79.82 Long term (current) use of aspirin; Z79.899 Other long term (current) drug therapy
CPT/HCPCS: 93312; 93325; Z7506; Z7508; 36415; 36600; 71045; 80048; 80053; 81003; 82330; 82435; 82803; 82947; 82948; 83036; 83735; 84100; 84132; 84295; 85018; 85025; 85027; 85347; 85384; 85610; 85730; 86885; 86900; 86901; 86920; 87070; 87075; 87081; 87102; 93005; 93880; 93970; 94002; 94760; 97116; 97162; 97530; A4615; A4618; A6213; A6222; A6223; A6258; A6402; A6449; A7000; A7048; C1751; G0378; J0280; J0690; J1644; J1650; J1815; J1940; J2060; J2250; J2270; J2440; J2704; J2710; J2720; J2919; J3010; J3370; J3475; J3480; J3490; J7030; J7040; J7050; J7120; P9045

== ENCOUNTER 2024-05-12 12:07 | Outpatient (CLI) | payer OTHER ==
[~2024-05-12 12:07] MED LIST changes: +CLOP75TA34 PO; +COL0.6T PO; +FURO20TA4 PO; -Insulin Reg/NS 100units/100mL 100 ML IV SCH; +LOP25T PO; -METO50TA16 PO; +PANT40TA54 PO; +POTA-206 PO; -dextrose 50%-water 50ml dispensing syringe IV PRN; -insulin glargine (Lantus) pen - multi-dose SQ PRN; +iohexol 300mg/ml 100ml inj. ONE; -ringers solution, lacted 1,000 ML IV SCH
== END 2024-05-12 23:59 | disposition home or self-care (01) ==
LOC: RAD 12:07
PROVIDERS: ATTEND Thoracic Surgery (Cardiothoracic Vascular Surgery)
DX: C34.12 Malignant neoplasm of upper lobe, left bronchus or lung (principal); I25.10 Atherosclerotic heart disease of native coronary artery without angina pectoris; N20.0 Calculus of kidney
CPT/HCPCS: 71260; Q9967